=== PATIENT | female | born 1950 | race Caucasian/White ===

== ENCOUNTER 2023-09-30 10:20 | Emergency (ER) | payer MEDICARE, SELFPAY ==
[2023-09-30] VITALS (9 sets, daily range): BP systolic 95–113; BP diastolic 50–68; PULSE 58–63; O2SAT 100; BMI 21.5
[2023-09-30 10:45] LABS: % Basophils 0.7 % (0-2); % Eosinophils 1.3 % (0-6); % Immature Granulocytes 0.3 % (0-0.5); % Lymphocytes 17.2 % (20.5-51.1); % Monocytes 9.6 % (1.7-9.3); % Neutrophils 70.9 % (42.2-75.2); Absolute Eosinophils 0.1 10^3/uL (0-0.7); Absolute Monocytes 0.6 10^3/uL (0.1-0.6); Absolute Neutrophils 4.3 10^3/uL (1.4-6.5); Hematocrit 36.8 % (37.0-47.0); Hemoglobin 12.4 g/dL (12.0-16.0); Mean Corp Hgb Conc. 33.7 g/dL (33.0-37.0); Mean Corpuscular Hgb 30.7 pg (27.0-31.0); Mean Corpuscular Volume 91.1 fL (81.0-99.0); Mean Platelet Volume 8.3 fL (7.4-10.4); Nucleated Red Blood Cells % 0 %; Platelet Count 253 10^3/uL (130-400); Red Blood Cell Count 4.04 10^6/uL (4.20-5.40); Red Cell Dist. Width 13.4 % (11.5-14.5); White Blood Cell Count 6.1 10^3/uL (4.8-10.8)
[2023-09-30 11:02] LABS: ALT (SGPT) 17 U/L (0-35); AST (SGOT) 22 U/L (14-36); Albumin 3.9 g/dl (3.5-5.0); Alkaline Phosphatase 38 U/L (38-126); Blood Urea Nitrogen 17 mg/dl (7-17); Calcium 9.2 mg/dl (8.4-10.2); Carbon Dioxide 30 mmol/L (22-30); Chloride 102 mmol/L (98-107); Estimated Creatinine Clearance 88 ml/min; Glucose 84 mg/dl (70-99); Potassium 3.6 mmol/L (3.5-5.1); Sodium 133 mmol/L (135-145); Total Bilirubin 0.5 mg/dl (0.2-1.3); Total Protein 6.2 g/dl (6.3-8.2); eGFR > 60.00
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
[2023-09-30] MEDS: ANTIVERT 25 MG PO (13:41)
[2023-09-30] MEDS: NSS 500 IV (14:31)
== END 2023-09-30 14:51 | disposition home or self-care (01) ==
LOC: EMR 10:20
PROVIDERS: EMERGENCY PHYSICIAN Emergency Medicine; FAMILY PHYSICIAN Family Medicine
DX: R42 Dizziness and giddiness (principal); R11.0 Nausea
CPT/HCPCS: 99285; 70450; 80053; 85025; 93005

== ENCOUNTER → 2023-10-04 11:36 | Outpatient (REF) | payer MEDICARE, SELFPAY | LOC: PAVMRI 11:36 | PROVIDERS: ATTENDING PHYSICIAN Orthopaedic Surgery Orthopaedic Surgery of the Spine; FAMILY PHYSICIAN Family Medicine | DX: M54.50 Low back pain, unspecified (principal) | CPT/HCPCS: 72158; A9575 ==

== ENCOUNTER 2023-10-22 09:07 | Outpatient (RCR) | payer MEDICARE, SELFPAY | END 2023-10-22 23:59 | disposition home or self-care (01) | LOC: RPT 09:07 | PROVIDERS: ATTENDING PHYSICIAN Family Medicine | DX: H81.12 Benign paroxysmal vertigo, left ear (principal); Z73.6 Limitation of activities due to disability | CPT/HCPCS: 97112; 97162 ==

== ENCOUNTER 2023-11-09 15:57 | Outpatient (RCR) | payer MEDICARE, SELFPAY | END 2023-11-09 23:59 | disposition home or self-care (01) | LOC: RPT 15:57 | PROVIDERS: ATTENDING PHYSICIAN Family Medicine | DX: H81.12 Benign paroxysmal vertigo, left ear (principal); Z73.6 Limitation of activities due to disability | CPT/HCPCS: 97112 ==

== ENCOUNTER → 2024-01-27 12:29 | Outpatient (REF) | payer MEDICARE, SELFPAY | LOC: RAD 12:29 | PROVIDERS: ATTENDING PHYSICIAN Orthopaedic Surgery Orthopaedic Surgery of the Spine; FAMILY PHYSICIAN Family Medicine | DX: M48.062 Spinal stenosis, lumbar region with neurogenic claudication (principal) | CPT/HCPCS: 72131 ==

== ENCOUNTER 2024-02-11 12:08 | Emergency (ER) | payer MEDICARE, SELFPAY ==
[2024-02-11 12:11] VITALS: BP 113/71
--- NOTE | 2024-02-11 13:04 | ED.GENMED ---
History of Present Illness
<Paul Workman PA-C - Last Filed: 02/11/24 13:06>
General
Chief Complaint: Urinary Symptoms
Source: patient
Exam Limitations: none
Time Seen by Provider: 02/11/24 12:41
History of Present Illness
History of Present Illness:
74-year-old female presents with urinary symptoms and left-sided abdominal pain for the past 3 days. This was preceded by vomiting and diarrhea. She notes chills several days ago but none currently. No vomiting currently. No chest pain or
shortness of breath. She started Macrobid for potential UTI. She has had a total of 5 doses of this.
Past History
<Paul Workman PA-C - Last Filed: 02/11/24 13:06>
Past History
ED Past Medical History: GERD, Hypothyroidism and Psychiatric
ED Past Surgical History: Appendectomy, Gynecological (Ovarian cystectomy) and Other
Social History
Tobacco: Non-smoker
Alcohol: None
Personal:
Phy Exam
<Paul Workman PA-C - Last Filed: 02/11/24 13:06>
Physical Exam
Physical Exam:
General: Well-appearing female nontoxic no acute respiratory distress
HEENT: Normocephalic atraumatic
Heart: Regular rate and rhythm no murmurs
Lungs: Clear no wheeze
Abdomen soft tender to the left lower quadrant no guarding rebound normal bowel sounds nondistended
Extremities: No cyanosis
Course
<Paul Workman PA-C - Last Filed: 02/11/24 13:06>
Orders/Labs/Results
Orders:
Orders
02/11/24 13:03
CT Abd/pelvis W Iv Cont Urgent
Comment:
Reason For Exam: llq pain
02/11/24 13:17
Urinalysis Reflex To Culture Urgent
Date Specimen was Collected: 02/11/24
Time Specimen was Collected: 13:15
Urine Microscopic Reflex Cult Urgent
Urine Culture Urgent
SHELLI Source: U
Specimen Description:
Date Specimen was Collected: 02/11/24
Time Specimen was Collected: 13:15
02/11/24 13:21
Complete Blood Count/With Diff Urgent
Comprehensive Metabolic Panel Urgent
02/11/24 16:10
Fosfomycin [Monurol] 3 gm PO ONCE ONE
Abnormal Lab Results
02/11/24 02/11/24
13:17 13:21
RBC 4.15 L 10^6/uL
(4.20-5.40)
Hct 36.3 L %
(37.0-47.0)
Absolute Monos (auto) 0.8 H 10^3/uL
(0.1-0.6)
Lymphocytes % 13.4 L %
(20.5-51.1)
Monocytes % 9.5 H %
(1.7-9.3)
Sodium 132 L mmol/L
(135-145)
Chloride 96 L mmol/L
(98-107)
Ur Occult Blood Reflex 4+ A
(Negative)
Leukocyte Esterase Rfl 1+ A
(Negative)
Urine WBC (Reflex) 16-20 A /HPF
(0-5)
02/11/24 13:21
02/11/24 13:21
Vital Signs
Initial and Last Documented VS:
Initial Vital Signs
Temp Pulse Resp BP Pulse Ox
98.1 F 81 18 113/71 99
02/11/24 12:11 02/11/24 12:11 02/11/24 12:11 02/11/24 12:11 02/11/24 12:11
Last Documented Vital Signs
Temp Pulse Resp BP Pulse Ox
98.1 F 69 14 130/91 94
02/11/24 12:11 02/11/24 16:56 02/11/24 16:56 02/11/24 16:56 02/11/24 16:56
<Apolinar Tovar PA-C - Last Filed: 02/11/24 18:29>
Orders/Labs/Results
Orders:
Orders
02/11/24 13:03
CT Abd/pelvis W Iv Cont Urgent
Comment:
Reason For Exam: llq pain
02/11/24 13:17
Urinalysis Reflex To Culture Urgent
Date Specimen was Collected: 02/11/24
Time Specimen was Collected: 13:15
Urine Microscopic Reflex Cult Urgent
Urine Culture Urgent
SHELLI Source: U
Specimen Description:
Date Specimen was Collected: 02/11/24
Time Specimen was Collected: 13:15
02/11/24 13:21
Complete Blood Count/With Diff Urgent
Comprehensive Metabolic Panel Urgent
02/11/24 16:10
Fosfomycin [Monurol] 3 gm PO ONCE ONE
Abnormal Lab Results
02/11/24 02/11/24
13:17 13:21
RBC 4.15 L 10^6/uL
(4.20-5.40)
Hct 36.3 L %
(37.0-47.0)
Absolute Monos (auto) 0.8 H 10^3/uL
(0.1-0.6)
Lymphocytes % 13.4 L %
(20.5-51.1)
Monocytes % 9.5 H %
(1.7-9.3)
Sodium 132 L mmol/L
(135-145)
Chloride 96 L mmol/L
(98-107)
Ur Occult Blood Reflex 4+ A
(Negative)
Leukocyte Esterase Rfl 1+ A
(Negative)
Urine WBC (Reflex) 16-20 A /HPF
(0-5)
02/11/24 13:21
02/11/24 13:21
Vital Signs
Initial and Last Documented VS:
Initial Vital Signs
Temp Pulse Resp BP Pulse Ox
98.1 F 81 18 113/71 99
02/11/24 12:11 02/11/24 12:11 02/11/24 12:11 02/11/24 12:11 02/11/24 12:11
Last Documented Vital Signs
Temp Pulse Resp BP Pulse Ox
98.1 F 69 14 130/91 94
02/11/24 12:11 02/11/24 16:56 02/11/24 16:56 02/11/24 16:56 02/11/24 16:56
<Paul Workman PA-C - Last Filed: 02/11/24 13:06>
MDM/Problems Addressed
Differential Diagnosis Includes:
Urinary symptoms with left lower abdominal pain. Question UTI versus renal colic versus diverticulitis.
Macrobid not improving symptoms are back to feel like she is getting worse. Check labs urinalysis pending CT pending
<Apolinar Tovar PA-C - Last Filed: 02/11/24 18:29>
*Critical Care Note
Total Time (30-74mins, 75-104mins- exclusive of procedures): Not Applicable
<Apolinar Tovar PA-C - Last Filed: 02/11/24 18:29>
Update Note
Update Note:
Assumed care of patient from Joseph Workman pending CT read. CT shows suggestion of enteritis. She does note viral symptoms that preseeded her current symptoms. The enteritis is likely the cause of her pain nevertheless given that she does have
some degree of pyuria we will treat with a single dose of fosfomycin pending culture
ED Attending Note
<Paul Workman PA-C - Last Filed: 02/11/24 13:06>
-
Portions of this chart may have been created with voice recognition software.� Occasional wrong word or��sound alike� substitutions may have occurred due to the inherent limitations of voice recognition software.
Discharge Plan
Departure
Patient Disposition: Home (Routine Discharge)
Date of Disposition: 02/11/24
Time of Disposition: 16:09
Patient with high blood pressure during this ER visit?: No
Discharge Problem:
Abdominal pain, lower
Instructions: Urinary Tract Infection, Adult (DC)
Prescriptions:
No Action
esomeprazole magnesium [Nexium] 40 mg Capsule,Delayed Release(Dr/Ec)
40 mg PO DAILY Qty: 0
duloxetine 60 MG capsule,delayed release(DR/EC)
60 mg PO DAILY
trazodone 100 MG tablet
350 mg PO HS
levothyroxine 50 MCG tablet
50 mcg PO DAILY
raloxifene 60 MG tablet
60 mg PO DAILY
eletriptan [Relpax] 40 MG tablet
40 mg PO BIDPRN PRN (Reason: migraines)
cholecalciferol (vitamin D3) 1,000 UNITS tablet
1,000 units PO DAILY
gabapentin 300 mg Capsule
300 mg PO TID
cyclosporine [Restasis] 0.05 % Dropperette
1 drp BOTH EYES Q12H
aripiprazole [Abilify] 5 mg Tablet
2.5 mg PO DAILY
Visbiome 112.5 billion cell Capsule
1 cap PO DAILY
magnesium oxide 240 mg magnesium Powder In Packet
240 mg PO DAILY
meclizine 25 mg tablet
25 mg PO TID Qty: 20 0RF
Referrals:
Richard Taylor MD [Family Provider] -
Activity Restrictions/Additional Instructions:
Your CT scan shows signs of small bowel inflammation, which is commonly seen after viral illnesses
It is not clear that this is a UTI
We treated you with an effective single dose antibiotic. Your urine culture will take approximately 2-3 days to determine if this is truly a UTI
Please take NSAIDs such as ibuprofen or naproxen for pain
Interventions
Interventions:
*Risk Screen - Suicide Last Done: 02/11/24 14:16
*General Assessment Last Done: 02/11/24 12:11
*Neglect/Abuse Screening Last Done: 02/11/24 14:16
ED- Fall Risk Assessment Last Done: 02/11/24 16:58
*ED COVID-19 Vaccine History Last Done: 02/11/24 14:16
*Nursing Disposition Last Done: 02/11/24 16:58
ED-Female Genitourinary Assessment Last Done: 02/11/24 14:16
Discharge Date and Time
Discharge Date/Time: 02/11/24 16:59
Print Language: FAROESE
[2024-02-11 13:30] LABS: % Basophils 0.5 % (0-2); % Eosinophils 1.9 % (0-6); % Immature Granulocytes 0.2 % (0-0.5); % Lymphocytes 13.4 % (20.5-51.1); % Monocytes 9.5 % (1.7-9.3); % Neutrophils 74.5 % (42.2-75.2); Absolute Eosinophils 0.2 10^3/uL (0-0.7); Absolute Lymphocytes 1.2 10^3/uL (1.2-3.4); Absolute Monocytes 0.8 10^3/uL (0.1-0.6); Absolute Neutrophils 6.5 10^3/uL (1.4-6.5); Hematocrit 36.3 % (37.0-47.0); Hemoglobin 12.3 g/dL (12.0-16.0); Mean Corp Hgb Conc. 33.9 g/dL (33.0-37.0); Mean Corpuscular Hgb 29.6 pg (27.0-31.0); Mean Corpuscular Volume 87.5 fL (81.0-99.0); Mean Platelet Volume 8.3 fL (7.4-10.4); Nucleated Red Blood Cells % 0 %; Platelet Count 239 10^3/uL (130-400); Red Blood Cell Count 4.15 10^6/uL (4.20-5.40); Red Cell Dist. Width 14.2 % (11.5-14.5); White Blood Cell Count 8.7 10^3/uL (4.8-10.8)
[2024-02-11 13:31] LABS: Urine Albumin Negative (Neg - Trace); Urine Bilirubin Negative (Negative); Urine Character Clear (Clear); Urine Color Yellow; Urine Glucose Negative (Negative); Urine Ketone Negative (Negative); Urine Leukocyte 1+ (Negative); Urine Nitrite Negative (Negative); Urine Occult Blood 4+ (Negative); Urine Urobilinogen Negative (Neg - 1+); Urine pH 6.5 (5.0-9.0)
[2024-02-11 13:46] LABS: ALT (SGPT) 18 U/L (0-35); AST (SGOT) 24 U/L (14-36); Albumin 3.9 g/dl (3.5-5.0); Alkaline Phosphatase 63 U/L (38-126); Blood Urea Nitrogen 13 mg/dl (7-17); Calcium 9.2 mg/dl (8.4-10.2); Carbon Dioxide 30 mmol/L (22-30); Chloride 96 mmol/L (98-107); Glucose 99 mg/dl (70-99); Potassium 4.3 mmol/L (3.5-5.1); Sodium 132 mmol/L (135-145); Total Bilirubin 0.6 mg/dl (0.2-1.3); Total Protein 6.3 g/dl (6.3-8.2); eGFR > 60.00
[2024-02-11 13:53] LABS: Urine White Cell 16-20 /HPF (0-5)
[2024-02-11 13:54] LABS: Urine Red Blood Cell 0-2 /HPF (0-2)
[2024-02-11 14:16] VITALS: BMI 20.4
[2024-02-11 14:17] VITALS: BP 93/53
[2024-02-11] MEDS: MONUROL 3 GM PO (16:40)
[2024-02-11 16:56] VITALS: BP 130/91
== END 2024-02-11 16:59 | disposition home or self-care (01) ==
LOC: EMR 12:08
PROVIDERS: Physician Assistant; EMERGENCY PHYSICIAN Emergency Medicine; FAMILY PHYSICIAN Family Medicine
DX: R10.30 Lower abdominal pain, unspecified (principal)
CPT/HCPCS: 99285; 74177; 80053; 81003; 81015; 85025; 87086; Q9967

== ENCOUNTER → 2024-03-08 08:18 | Outpatient (REF) | payer MEDICARE, SELFPAY | LOC: PAVMRI 08:18 | PROVIDERS: ATTENDING PHYSICIAN Orthopaedic Surgery Orthopaedic Surgery of the Spine | DX: M48.02 Spinal stenosis, cervical region (principal) | CPT/HCPCS: 72158; A9575 ==

== ENCOUNTER → 2024-04-04 08:28 | Outpatient (REF) | payer MEDICARE, SELFPAY | LOC: HWRAD 08:28 | PROVIDERS: ATTENDING PHYSICIAN Urology; FAMILY PHYSICIAN Family Medicine | DX: R31.0 Gross hematuria (principal) | CPT/HCPCS: 74178; Q9967 ==

== ENCOUNTER → 2024-06-21 11:07 | Outpatient (REF) | payer MEDICARE, SELFPAY | LOC: RAD 11:07 | PROVIDERS: ATTENDING PHYSICIAN Family Medicine | DX: M81.0 Age-related osteoporosis without current pathological fracture (principal) | CPT/HCPCS: 77080 ==

== ENCOUNTER 2024-11-22 06:35 | Day surgery (SDC) | payer MEDICARE, SELFPAY | END 2024-11-22 15:35 | disposition home or self-care (01) | LOC: GI 06:35 | PROVIDERS: ATTENDING PHYSICIAN Internal Medicine | DX: Z12.11 Encounter for screening for malignant neoplasm of colon (principal); K57.30 Diverticulosis of large intestine without perforation or abscess without bleeding; K64.4 Residual hemorrhoidal skin tags; D12.2 Benign neoplasm of ascending colon; Z80.0 Family history of malignant neoplasm of digestive organs; Z98.0 Intestinal bypass and anastomosis status | CPT/HCPCS: 45385; 88305 ==

== ENCOUNTER → 2025-04-03 07:44 | Outpatient (REF) | payer MEDICARE, SELFPAY | LOC: MRI 3T 07:44 | PROVIDERS: ATTENDING PHYSICIAN Nurse Practitioner Family; FAMILY PHYSICIAN Family Medicine | DX: Z85.3 Personal history of malignant neoplasm of breast (principal); Z98.82 Breast implant status | CPT/HCPCS: 77049; A9585 ==